=== PATIENT | female | born 1970 | race African-American/Black ===

== ENCOUNTER 2018-04-19 16:21 | Inpatient (IN) | payer SELFPAY ==
[~2018-04-19] VITALS: Ht 149.9 cm; Wt 66.2 kg
[2018-04-19] MEDS ORDERED: SODIUM CHLORIDE 0.9% 1,000 ML IV ONE (21:21)
[2018-04-19] MEDS ORDERED: ONDANSETRON HCL 4MG/2ML INJ IV ONE (22:00)
[2018-04-19] MEDS ORDERED: MORPHINE SULFATE 10 MG/ML CPJ IV ONE (22:00)
[2018-04-19 23:06] LABS: BASOPHILS % 0.6 % (0.0-2.0); EOSINOPHILS % 0.7 % (0.0-5.0); HEMATOCRIT. 41.5 % (36.0-48.0); HEMOGLOBIN. 13.8 g/dL (12.0-16.0); LYMPHOCYTES % 32.8 % (20.0-50.0); MEAN CORPUSCULAR HEMOGLOBIN 31.4 pg (28.0-32.0); MEAN CORPUSCULAR VOLUME 94.4 fL (81.0-99.0); MEAN PLATELET VOLUME 8.1 fl (7.4-10.4); MONOCYTES % 7.9 % (2.0-8.0); PLATELET 328 x1000/uL (130-400)
[2018-04-19 23:07] LABS: CHLORIDE 105 mEq/L (98-107)
[2018-04-19 23:08] LABS: HCG SCREEN NEGATIVE
[2018-04-19 23:09] LABS: PARTIAL THROMBOPLASTIN TIME 30.6 sec (23.4-31.0); PROTHROMBIN TIME 10.5 sec (9.1-11.1)
[2018-04-19 23:12] LABS: ETHANOL BLOOD < 10 mg/dL
[2018-04-19 23:20] LABS: *BENZODIAZEPINES SCREEN URINE NEGATIVE (NEGATIVE); *COCAINE SCREEN URINE NEGATIVE (NEGATIVE); METHADONE URINE SCREEN NEGATIVE (NEGATIVE); OPIATES URINE SCREEN NEGATIVE (NEGATIVE)
[2018-04-19 23:21] LABS: *AMPHETAMINES SCREEN URINE NEGATIVE (NEGATIVE); *BARBITURATES SCREEN URINE NEGATIVE (NEGATIVE); CANNABINOID URINE SCREEN NEGATIVE (NEGATIVE); PHENCYCLIDINE URINE SCREEN NEGATIVE (NEGATIVE)
[2018-04-20] MEDS ORDERED: MORPHINE SULFATE 4 MG/ML CPJ (NOT FOR IM USE) IV ONE (04:02)
[2018-04-20] MEDS: MORPHINE SULFATE 4 MG/ML CPJ (NOT FOR IM USE) IV PRN ×3 (08:46→20:20)
[2018-04-20 10:00] VITALS: BP 141/66
[2018-04-20 10:38] VITALS: BP 141/66
[2018-04-20] MEDS ORDERED: ACETAMINOPHEN 325MG TABLET PO PRN (11:45)
[2018-04-20] MEDS ORDERED: AMLODIPINE 5MG TABLET PO SCH (11:45)
[2018-04-20 15:06] LABS: LDL CHOLESTEROL 116 mg/dL (5-100)
[2018-04-20 15:08] LABS: HDL CHOLESTEROL 57 mg/dL (40-59)
[2018-04-20 16:25] VITALS: BP 147/82
[2018-04-20] MEDS: ONDANSETRON HCL 4MG/2ML INJ IV PRN (18:35)
[2018-04-20 20:31] VITALS: BP 156/91
[2018-04-21] VITALS: BP 148/71
[2018-04-21 04:00] VITALS: BP 148/94
[2018-04-21] MEDS: ONDANSETRON HCL 4MG/2ML INJ IV PRN (04:43)
[2018-04-21 04:45] VITALS: BP 148/94
[2018-04-21] MEDS: MORPHINE SULFATE 4 MG/ML CPJ (NOT FOR IM USE) IV PRN (04:45)
[2018-04-21 07:06] LABS: HEMATOCRIT. 39.4 % (36.0-48.0); HEMOGLOBIN. 12.9 g/dL (12.0-16.0); MEAN CORPUSCULAR HEMOGLOBIN 31.1 pg (28.0-32.0); MEAN CORPUSCULAR VOLUME 94.9 fL (81.0-99.0); MEAN PLATELET VOLUME 8.2 fl (7.4-10.4); PLATELET 289 x1000/uL (130-400); RED BLOOD CELL COUNT 4.15 mill/uL (4.2-5.4)
[2018-04-21 07:23] LABS: CHLORIDE 104 mEq/L (98-107)
[2018-04-21 10:56] LABS: PLATELET ESTIMATE NORMAL
== END 2018-04-21 07:08 | disposition left against medical advice (07) | DRG 48 ==
LOC: ER 16:21 → 8WST 23:49 → EDBEDREQTM 23:55 → EDBEDREQ 23:55 → ENRESERV 04-20 07:44 → CANRESERV 04-20 07:44 → ENRESERV 04-20 07:48
PROVIDERS: ADMIT Internal Medicine; ATTEND Internal Medicine
DX: G90.8 Other disorders of autonomic nervous system (principal); I10 Essential (primary) hypertension; I25.10 Atherosclerotic heart disease of native coronary artery without angina pectoris; R07.89 Other chest pain; I25.2 Old myocardial infarction; Z90.49 Acquired absence of other specified parts of digestive tract; Z79.899 Other long term (current) drug therapy; Z88.0 Allergy status to penicillin; Z90.711 Acquired absence of uterus with remaining cervical stump
CPT/HCPCS: 36415; 71045; 73030; 73060; 73502; 80048; 80061; 80305; 83880; 84443; 84484; 84703; 93005; 93306; 96374; 99285; G0482; J2270; J2405; J7030